=== PATIENT | female | born 1955 | race American Indian/Alaskan Native ===

== ENCOUNTER 2019-08-01 17:54 | Observation (INO) | payer OTHER ==
--- NOTE | 2019-08-01 18:11 | Event Note ---
ED Screening Note ED Screening Note: states she felt lightheaded and had an episode of syncope denies dizziness or CP no SOB hit against the concrete bilateral wrist and hand pain hit her face PMHx DM on metformin no allergies This initial assessment/diagnostic orders/clinical plan/treatment(s) is/are subject to change based on patients health status, clinical progression and re- assessment by fellow clinical providers in the ED. Further treatment and workup at subsequent clinical providers discretion. Patient/guardian urged not to elope from the ED as their condition may be serious if not clinically assessed and managed. Initial orders include: CT head, facial bones, c-spine, XR of the bilateral wrist/hands, EKG, labs, UA
[2019-08-01] MEDS ORDERED: TETANUS,DIPH,PERTUSS(ACELL) VACCINE 0.5 ML SYRINGE IM ONE (18:13)
[2019-08-01 18:45] LABS: Basophils % (Auto) 0.6 % (0.0-1.8); Eosinophils # (Auto) 0.2 K/mm3 (0.0-0.4); Eosinophils % (Auto) 2.6 % (0.0-4.3); Hematocrit 37.8 % (30.3-42.9); Hemoglobin 12.3 gm/dl (10.1-14.3); Lymphocytes # (Auto) 2.6 K/mm3 (1.2-5.4); Lymphocytes % (Auto) 38.4 % (13.4-35.0); Mean Corpuscular HGB Conc 33 % (30-34); Mean Corpuscular Volume 85 fl (79-97); Monocytes # (Auto) 0.5 K/mm3 (0.0-0.8); Monocytes % (Auto) 7.2 % (0.0-7.3); Platelet Count 273 K/mm3 (140-440); Red Blood Count 4.44 M/mm3 (3.65-5.03)
[2019-08-01 18:51] LABS: INR 0.95 (0.87-1.13)
[2019-08-01 18:52] LABS: Partial Thromboplastin Time 31.2 Sec. (24.2-36.6)
[2019-08-01 18:56] LABS: Alanine Aminotransferase 9 units/L (7-56); Albumin 4.3 g/dL (3.9-5); BUN/Creatinine Ratio 16; Blood Urea Nitrogen 14 mg/dL (7-17); Hemolysis Index 10
--- NOTE | 2019-08-01 19:31 | Cat Scan Report ---
CT head/brain wo con INDICATION: syncope, fell onto ground. TECHNIQUE: Routine CT head without contrast. All CT scans at this location are performed using CT dos e reduction for ALARA by means of automated exposure control. COMPARISON: None. FINDINGS: BRAIN / INTRACRANIAL CONTENTS: No acute hemorrhage, mass effect, midline shift, or hydrocephalus. No appreciable acute large territorial or lacunar infarct. No chronic infarct or focal atrophy. Normal b rain volume and ventricular/sulcal size for age. ORBITS: No significant abnormality of visualized orbits. SINUSES / MASTOIDS: No significant abnormality of visualized sinuses and mastoid air cells. ADDITIONAL FINDINGS: None. IMPRESSION: 1. No acute intracranial abnormality. Signer Name: Demetri Brown MD Signed: 08/01/2019 7:26 PM Workstation Name: [id number]
--- NOTE | 2019-08-01 19:36 | XRay Report ---
BILATERAL WRISTS 3 VIEWS BILATERAL HANDS 3 VIEWS INDICATION / CLINICAL INFORMATION: Bilateral hand and wrist pain after syncope with collapse. COMPARISON: None available. FINDINGS: BONES and JOINT(S): No acute fracture or subluxation. There is moderate left radiocarpal joint space loss and mild right radiocarpal joint space loss. An old avulsion fracture of the left ulnar styloid is noted. There is a probable old fracture of the left fifth metacarpal. SOFT TISSUES: No significant abnormality. ADDITIONAL FINDINGS: None. IMPRESSION: 1. No acute abnormality of the hands or wrists. 2. Additional findings as above. Signer Name: Cameron Díaz MD Signed: 08/01/2019 7:32 PM Workstation Name: [id number]
--- NOTE | 2019-08-01 19:46 | Cat Scan Report ---
CT CERVICAL SPINE WITHOUT CONTRAST INDICATION: syncope, fell onto ground. TECHNIQUE: Axial CT images of the spine were obtained. Sagittal and coronal reformatted images were produced. Al l CT scans at this location are performed using CT dose reduction for ALARA by means of automated exp osure control. COMPARISON: None available. FINDINGS: ACUTE FRACTURE(S) OR SUBLUXATION: None. SPINAL DEGENERATIVE CHANGES: There is mild degenerative disc disease from C4 through C7 with disc hei ght loss and endplate osteophyte formation. The endplate osteophytes appear to cause mild canal steno sis at the C6-7 level. There is also mild bilateral neural foraminal narrowing as well as secondary t o uncovertebral DJD. PARASPINAL SOFT TISSUES: No soft tissue swelling or other acute abnormalities. ADDITIONAL FINDINGS: No significant additional findings. IMPRESSION: 1. No acute fracture or subluxation in the spine in neutral position. 2. Degenerative findings in lower cervical spine as described. Signer Name: Demetri Brown MD Signed: 08/01/2019 7:41 PM Workstation Name: [id number]
--- NOTE | 2019-08-01 19:47 | Cat Scan Report ---
CT MAXILLOFACIAL WITHOUT CONTRAST INDICATION: syncope, fell onto ground. TECHNIQUE: Maxillofacial CT without contrast. All CT scans at this location are performed using CT dose reductio n for ALARA by means of automated exposure control. COMPARISON: None available. FINDINGS: FACIAL BONES: No fracture or other significant abnormality. PARANASAL SINUSES: No significant abnormality. ORBITS: No significant abnormality. VISUALIZED INTRACRANIAL STRUCTURES: No significant abnormality. ADDITIONAL FINDINGS: None. IMPRESSION: 1. No significant abnormality. Signer Name: Demetri Brown MD Signed: 08/01/2019 7:42 PM Workstation Name: [id number]
[2019-08-01 20:19] LABS: Bilirubin,Urine Negative (Negative); Blood,Urine Large (Negative); Color,Urine Straw (Yellow)
[2019-08-01 20:20] LABS: Protein,Urine <15 mg/dL mg/dL (Negative); Urobilinogen,Urine < 2.0 mg/dL (<2.0)
[2019-08-01 20:40] LABS: Bacteria,Urine 1+ /HPF (Negative)
--- NOTE | 2019-08-01 21:10 | Emergency Department Report ---
ED General Adult HPI - General Chief complaint: Syncope Stated complaint: PASSED OUT/CHECK FOR CONCUSSION Time Seen by Provider: 08/01/19 18:08 Source: patient, family Mode of arrival: Ambulatory Limitations: Other - History of Present Illness Initial comments: The patient presents to the emergency department for syncopal episode. Patient states she was waiting for the bus and the bus stop and became dizzy and passed out. Upon awakening the patient states will form and surrounding her who were concerned about the events and asked if she wanted ambulance and the patient politely declined. The patient proceeded to get on the bus and went home before coming to the hospital. Patient denies any chest pain or shortness of breath prior to after the event. Patient complains of neck and head pain as well as wrist and hand pain. -: Sudden Location: upper extremity Severity scale (0 -10): 5 Quality: aching Consistency: constant Improves with: none Worsens with: none Associated Symptoms: denies other symptoms Treatments Prior to Arrival: none - Related Data Allergies Allergy/AdvReac Type Severity Reaction Status Date / Time No Known Allergies Allergy Unverified 08/01/19 17:58 ED Review of Systems ROS: Stated complaint: PASSED OUT/CHECK FOR CONCUSSION Other details as noted in HPI Comment: All other systems reviewed and negative Constitutional: denies: chills, fever Eyes: denies: eye pain, eye discharge, vision change ENT: denies: ear pain, throat pain Respiratory: denies: cough, shortness of breath, wheezing Cardiovascular: denies: chest pain, palpitations Endocrine: no symptoms reported Gastrointestinal: denies: abdominal pain, nausea, diarrhea Genitourinary: denies: urgency, dysuria, discharge Musculoskeletal: denies: back pain, joint swelling, arthralgia Skin: denies: rash, lesions Neurological: denies: headache, weakness, paresthesias Psychiatric: denies: anxiety, depression Hematological/Lymphatic: denies: easy bleeding, easy bruising ED Past Medical Hx - Past Medical History Hx Diabetes: Yes Additional medical history: BROKE WRIST - Surgical History Additional Surgical History: EYE SURGERY - Social History Smoking Status: Never Smoker Substance Use Type: None ED Physical Exam - General Limitations: Other General appearance: alert, in no apparent distress - Head Head exam: Present: normocephalic, other (multiple abrasions to the face) - Eye Eye exam: Present: normal appearance, PERRL, EOMI - ENT ENT exam: Present: mucous membranes moist - Neck Neck exam: Present: normal inspection - Respiratory Respiratory exam: Present: normal lung sounds bilaterally. Absent: respiratory distress, wheezes, rales - Cardiovascular Cardiovascular Exam: Present: regular rate, normal rhythm. Absent: systolic murmur, diastolic murmur, rubs, gallop - GI/Abdominal GI/Abdominal exam: Present: soft, normal bowel sounds. Absent: distended, tenderness - Extremities Exam Extremities exam: Present: normal inspection - Back Exam Back exam: Present: normal inspection - Neurological Exam Neurological exam: Present: alert, oriented X3, CN II-XII intact. Absent: motor sensory deficit - Psychiatric Psychiatric exam: Present: normal affect, normal mood - Skin Skin exam: Present: warm, dry, intact, normal color. Absent: rash ED Course Vital Signs 08/01/19 08/01/19 08/01/19 18:03 18:38 18:39 Temperature 98.6 F Pulse Rate 78 Respiratory 18 Rate Blood Pressure 170/82 Blood Pressure [Left] O2 Sat by Pulse 97 100 99 Oximetry 08/01/19 08/01/19 08/01/19 18:40 18:46 19:40 Temperature 98.0 F Pulse Rate 73 70 Respiratory 12 18 14 Rate Blood Pressure 150/74 Blood Pressure 156/73 [Left] O2 Sat by Pulse 100 99 100 Oximetry 08/01/19 08/01/19 08/01/19 20:00 20:30 21:00 Temperature Pulse Rate 72 72 70 Respiratory 12 13 12 Rate Blood Pressure 156/79 162/77 136/76 Blood Pressure [Left] O2 Sat by Pulse 100 100 100 Oximetry ED Medical Decision Making - Lab Data Result diagrams: 08/01/19 18:24 08/01/19 18:24 Lab Results 08/01/19 08/01/19 08/01/19 Range/Units 18:24 18:24 18:24 WBC 6.9 (4.5-11.0) K/mm3 RBC 4.44 (3.65-5.03) M/mm3 Hgb 12.3 (10.1-14.3) gm/dl Hct 37.8 (30.3-42.9) % MCV 85 (79-97) fl MCH 28 (28-32) pg MCHC 33 (30-34) % RDW 14.0 (13.2-15.2) % Plt Count 273 (140-440) K/mm3 Lymph % (Auto) 38.4 H (13.4-35.0) % [place] % (Auto) 7.2 (0.0-7.3) % Eos % (Auto) 2.6 (0.0-4.3) % Baso % (Auto) 0.6 (0.0-1.8) % Lymph # 2.6 (1.2-5.4) K/mm3 [place] # 0.5 (0.0-0.8) K/mm3 Eos # 0.2 (0.0-0.4) K/mm3 Baso # 0.0 (0.0-0.1) K/mm3 Seg Neutrophils % 51.2 (40.0-70.0) % Seg Neutrophils # 3.5 (1.8-7.7) K/mm3 PT 12.6 (12.2-14.9) Sec. INR 0.95 (0.87-1.13) APTT 31.2 (24.2-36.6) Sec. Sodium 139 (137-145) mmol/L Potassium 4.0 (3.6-5.0) mmol/L Chloride 100.0 (98-107) mmol/L Carbon Dioxide 21 L (22-30) mmol/L Anion Gap 22 mmol/L BUN 14 (7-17) mg/dL Creatinine 0.9 (0.7-1.2) mg/dL Estimated GFR > 60 ml/min BUN/Creatinine Ratio 16 % Glucose 137 H (65-100) mg/dL Calcium 10.0 (8.4-10.2) mg/dL Phosphorus 3.60 (2.5-4.5) mg/dL Magnesium 1.70 (1.7-2.3) mg/dL Total Bilirubin 0.50 (0.1-1.2) mg/dL AST 18 (5-40) units/L ALT 9 (7-56) units/L Alkaline Phosphatase 60 (35-129) units/L Total Creatine Kinase 89 (30-135) units/L Total Protein 7.8 (6.3-8.2) g/dL Albumin 4.3 (3.9-5) g/dL Albumin/Globulin Ratio 1.2 % Urine Color (Yellow) Urine Turbidity (Clear) Urine pH (5.0-7.0) Ur Specific [place] (1.003-1.030) Urine Protein (Negative) mg/dL Urine Glucose (UA) (Negative) mg/dL Urine Ketones (Negative) mg/dL Urine Blood (Negative) Urine Nitrite (Negative) Urine Bilirubin (Negative) Urine Urobilinogen (<2.0) mg/dL Ur Leukocyte Esterase (Negative) Urine WBC (Auto) (0.0-6.0) /HPF Urine RBC (Auto) (0.0-6.0) /HPF Urine Bacteria (Auto) (Negative) /HPF 08/01/19 Range/Units 19:45 WBC (4.5-11.0) K/mm3 RBC (3.65-5.03) M/mm3 Hgb (10.1-14.3) gm/dl Hct (30.3-42.9) % MCV (79-97) fl MCH (28-32) pg MCHC (30-34) % RDW (13.2-15.2) % Plt Count (140-440) K/mm3 Lymph % (Auto) (13.4-35.0) % [place] % (Auto) (0.0-7.3) % Eos % (Auto) (0.0-4.3) % Baso % (Auto) (0.0-1.8) % Lymph # (1.2-5.4) K/mm3 [place] # (0.0-0.8) K/mm3 Eos # (0.0-0.4) K/mm3 Baso # (0.0-0.1) K/mm3 Seg Neutrophils % (40.0-70.0) % Seg Neutrophils # (1.8-7.7) K/mm3 PT (12.2-14.9) Sec. INR (0.87-1.13) APTT (24.2-36.6) Sec. Sodium (137-145) mmol/L Potassium (3.6-5.0) mmol/L Chloride (98-107) mmol/L Carbon Dioxide (22-30) mmol/L Anion Gap mmol/L BUN (7-17) mg/dL Creatinine (0.7-1.2) mg/dL Estimated GFR ml/min BUN/Creatinine Ratio % Glucose (65-100) mg/dL Calcium (8.4-10.2) mg/dL Phosphorus (2.5-4.5) mg/dL Magnesium (1.7-2.3) mg/dL Total Bilirubin (0.1-1.2) mg/dL AST (5-40) units/L ALT (7-56) units/L Alkaline Phosphatase (35-129) units/L Total Creatine Kinase (30-135) units/L Total Protein (6.3-8.2) g/dL Albumin (3.9-5) g/dL Albumin/Globulin Ratio % Urine Color Straw (Yellow) Urine Turbidity Clear (Clear) Urine pH 6.0 (5.0-7.0) Ur Specific [place] 1.010 (1.003-1.030) Urine Protein <15 mg/dl (Negative) mg/dL Urine Glucose (UA) Negative (Negative) mg/dL Urine Ketones Negative (Negative) mg/dL Urine Blood Large A (Negative) Urine Nitrite Negative (Negative) Urine Bilirubin Negative (Negative) Urine Urobilinogen < 2.0 (<2.0) mg/dL Ur Leukocyte Esterase Large (Negative) Urine WBC (Auto) 1.0 (0.0-6.0) /HPF Urine RBC (Auto) 1.0 (0.0-6.0) /HPF Urine Bacteria (Auto) 1+ (Negative) /HPF - EKG Data -: EKG Interpreted by Mo EKG shows normal: sinus rhythm Rate: normal - Radiology Data Radiology results: report reviewed - Medical Decision Making Results discussed with patient and her family Critical care attestation.: If time is entered above; I have spent that time in minutes in the direct care of this critically ill patient, excluding procedure time. ED Disposition Clinical Impression: Syncope and collapse Disposition: DC-09 OP ADMIT IP TO THIS HOSP Is pt being admited?: Yes Does the pt Need Aspirin: Yes Condition: Fair Instructions: Syncope (ED) Referrals: PRIMARY CARE, [Primary Care Provider] - 3-5 Days
[2019-08-01] MEDS ORDERED: DEXTROSE 50% IN WATER (25GM) 50 ML SYRINGE IV PRN (21:38)
[2019-08-01] MEDS ORDERED: ONDANSETRON 4 MG/2 ML INJ IV PRN (21:38)
[2019-08-01] MEDS ORDERED: MAGNESIUM HYDROXIDE (MOM) ORAL LIQD UDC PO PRN (21:38)
--- NOTE | 2019-08-01 21:50 | History and Physical Report ---
History of Present Illness Date of admission: 08/01/19 Chief complaint: Syncope History of present illness: 64 year old female with known history of diabetes mellitus had a syncopal episode today. [place] she had a syncopal episode. She fell face forward and injured the bridge of her nose. She had a mild headache which has since resolved. Patient also indicates that she had a similar episode a few years ago but did not seek any medical intervention. She has known history of diabetes mellitus and the blood sugar has been stable. Past History Past Medical History: other (Crohn's disease) Past Surgical History: cataract removal, Other (history of glaucoma) Family history: diabetes (diabetes mellitus runs in the family), hypertension, other Medications and Allergies Allergies Allergy/AdvReac Type Severity Reaction Status Date / Time No Known Allergies Allergy Verified 08/01/19 21:51 Review of Systems Neurological: syncope, headaches Exam - Constitutional Vitals: Temp Pulse Resp BP Pulse Ox 98.0 F 70 12 136/76 100 08/01/19 19:40 08/01/19 21:00 08/01/19 21:00 08/01/19 21:00 08/01/19 21:00 General appearance: Present: no acute distress, well-nourished - EENT Eyes: Present: PERRL, EOM intact ENT: hearing intact, clear oral mucosa, dentition normal - Neck Neck: Present: supple, normal ROM - Respiratory Respiratory effort: normal Respiratory: bilateral: CTA - Cardiovascular Rhythm: regular Heart Sounds: Present: S1 & S2 - Extremities Extremities: no ischemia, pulses symmetrical, No edema, Full ROM Peripheral Pulses: within normal limits - Abdominal General gastrointestinal: Present: soft, non-tender - Integumentary Integumentary: Present: clear, warm, dry, erythema (mild erythema and bruising on the forehead and bridge of the nose) - Musculoskeletal Musculoskeletal: strength equal bilaterally - Psychiatric Psychiatric: appropriate mood/affect, intact judgment & insight, cooperative - Neurologic Neurologic: CNII-XII intact, moves all extremities Results - Labs CBC & Chem 7: 08/01/19 18:24 08/01/19 18:24 Labs: Abnormal lab results 08/01/19 08/01/19 08/01/19 Range/Units 18:24 18:24 19:45 Lymph % (Auto) 38.4 H (13.4-35.0) % Carbon Dioxide 21 L (22-30) mmol/L Glucose 137 H (65-100) mg/dL Urine Blood Large A (Negative) Assessment and Plan - Patient Problems (1) Syncope and collapse Current Visit: Yes Status: Acute Plan to address problem: Etiology is unclear. Will observe in telemerty. We'll schedule patient for carotid Doppler and also echocardiogram. Will also monitor orthostatic vital signs. (2) Diabetes Current Visit: Yes Status: Acute Plan to address problem: We monitor blood glucose will resume routine home medications. (3) DVT prophylaxis Current Visit: Yes Status: Acute Plan to address problem: Will Place on subcutaneous heparin (4) Full code status Current Visit: Yes Status: Acute
[2019-08-01] MEDS ORDERED: HEPARIN 5,000 UNIT/1 ML VIAL ONE (22:25)
[2019-08-01] MEDS: HEPARIN 5,000 UNIT/1 ML VIAL SUB-Q SCH (22:26)
[2019-08-02] MEDS: ACETAMINOPHEN 325 MG TAB PO PRN ×2 (00:44→11:02)
[2019-08-02 05:56] LABS: Basophils % (Auto) 0.4 % (0.0-1.8); Eosinophils # (Auto) 0.2 K/mm3 (0.0-0.4); Eosinophils % (Auto) 3.8 % (0.0-4.3); Hematocrit 38.3 % (30.3-42.9); Hemoglobin 12.5 gm/dl (10.1-14.3); Lymphocytes # (Auto) 1.8 K/mm3 (1.2-5.4); Lymphocytes % (Auto) 45.6 % (13.4-35.0); Mean Corpuscular HGB Conc 33 % (30-34); Mean Corpuscular Volume 85 fl (79-97); Monocytes # (Auto) 0.3 K/mm3 (0.0-0.8); Monocytes % (Auto) 7.2 % (0.0-7.3); Platelet Count 265 K/mm3 (140-440); Red Blood Count 4.51 M/mm3 (3.65-5.03)
[2019-08-02 06:02] LABS: Partial Thromboplastin Time 33.1 Sec. (24.2-36.6)
[2019-08-02 06:06] LABS: BUN/Creatinine Ratio 13; Blood Urea Nitrogen 9 mg/dL (7-17); Hemolysis Index 1
[2019-08-02 06:32] LABS: Calcium 9.5 mg/dL (8.4-10.2)
[2019-08-02] MEDS: HEPARIN 5,000 UNIT/1 ML VIAL SUB-Q SCH ×3 (07:44→21:52)
--- NOTE | 2019-08-02 11:40 | Vascular Lab Report ---
Bilateral carotid Doppler. 08/02/2019. HISTORY: Syncope. FINDINGS: Duplex Doppler evaluation of the carotid system was performed with spectral waveform analys is. Antegrade vertebral flow is present bilaterally. Peak systolic velocity at the right internal carotid artery is 100 and centimeters per second. Systol ic velocity ratio is 1. Peak systolic velocity at the left internal carotid artery is 116 cm/s. Systolic velocity ratio is 1. 2. Grayscale imaging demonstrates no flow limiting plaque. IMPRESSION: Stenosis less than 50% bilaterally per NASCET criteria. Signer Name: Jose Valadez MD Signed: 08/02/2019 11:36 AM Workstation Name: [id number]
[2019-08-02] MEDS: oxyCODONE /ACETAMINOPHEN 5-325MG TAB PO PRN (13:04)
[2019-08-02] MEDS: INSULIN LISPRO 100 UNIT/ML SUB-Q SCH ×2 (18:07→21:52)
--- NOTE | 2019-08-02 18:35 | Progress Note ---
Assessment and Plan Assessment and plan: -- Syncope and collapse Current Visit: Yes Status: Acute Probably vasovagal,Autonomic disequilibrium Fall precautions.f/u carotid Doppler, echocardiogram. --Orthostatic changes: Current Visit: Yes Status: Acute Fall precautions --Severe dizziness; Current Visit: Yes Status: Acute Fall precautions, physical therapy. -- Diabetes Current Visit: Yes Status:Chronic. monitor blood glucose will resume routine home medications. -- DVT prophylaxis Current Visit: Yes Status: Acute Will Place on subcutaneous heparin -- Full code status Current Visit: Yes Status: Acute Ambulate as tolerated Possible DC this eveningor tomorrow if stable. Plan of care discussed with the patient, family member and her nurse History Interval history: Patient seen and examined medical records reviewed Patient complaints of severe dizziness Ambulated the bathroom once or twice Syncope workup is in progress Vital signs noted Hospitalist Physical - Constitutional Vitals: Temp Pulse Resp BP Pulse Ox 98.5 F 74 20 154/79 99 08/02/19 11:29 08/02/19 14:00 08/02/19 13:04 08/02/19 11:29 08/02/19 11:29 General appearance: Present: no acute distress, well-nourished, other (feels dizzy) - EENT Eyes: Present: PERRL, EOM intact - Neck Neck: Present: supple, normal ROM - Respiratory Respiratory effort: normal Respiratory: bilateral: diminished, negative: rales, rhonchi, wheezing - Cardiovascular Rhythm: regular Heart Sounds: Present: S1 & S2 - Extremities Extremities: no ischemia, No edema - Abdominal General gastrointestinal: soft, non-tender, non-distended, normal bowel sounds - Integumentary Integumentary: Present: clear, warm - Psychiatric Psychiatric: appropriate mood/affect, cooperative - Neurologic Neurologic: CNII-XII intact, moves all extremities Results - Labs CBC & Chem 7: 08/02/19 04:51 08/02/19 04:51 Labs: Laboratory Last Values WBC 4.0 K/mm3 (4.5-11.0) L 08/02/19 04:51 RBC 4.51 M/mm3 (3.65-5.03) 08/02/19 04:51 Hgb 12.5 gm/dl (10.1-14.3) 08/02/19 04:51 Hct 38.3 % (30.3-42.9) 08/02/19 04:51 MCV 85 fl (79-97) 08/02/19 04:51 MCH 28 pg (28-32) 08/02/19 04:51 MCHC 33 % (30-34) 08/02/19 04:51 RDW 14.0 % (13.2-15.2) 08/02/19 04:51 Plt Count 265 K/mm3 (140-440) 08/02/19 04:51 Lymph % (Auto) 45.6 % (13.4-35.0) H 08/02/19 04:51 [place] % (Auto) 7.2 % (0.0-7.3) 08/02/19 04:51 Eos % (Auto) 3.8 % (0.0-4.3) 08/02/19 04:51 Baso % (Auto) 0.4 % (0.0-1.8) 08/02/19 04:51 Lymph # 1.8 K/mm3 (1.2-5.4) 08/02/19 04:51 [place] # 0.3 K/mm3 (0.0-0.8) 08/02/19 04:51 Eos # 0.2 K/mm3 (0.0-0.4) 08/02/19 04:51 Baso # 0.0 K/mm3 (0.0-0.1) 08/02/19 04:51 Seg Neutrophils % 43.0 % (40.0-70.0) 08/02/19 04:51 Seg Neutrophils # 1.7 K/mm3 (1.8-7.7) L 08/02/19 04:51 PT 13.1 Sec. (12.2-14.9) 08/02/19 04:51 INR 1.00 (0.87-1.13) 08/02/19 04:51 APTT 33.1 Sec. (24.2-36.6) 08/02/19 04:51 Sodium 140 mmol/L (137-145) 08/02/19 04:51 Potassium 3.7 mmol/L (3.6-5.0) 08/02/19 04:51 Chloride 100.4 mmol/L (98-107) 08/02/19 04:51 Carbon Dioxide 27 mmol/L (22-30) 08/02/19 04:51 Anion Gap 16 mmol/L 08/02/19 04:51 BUN 9 mg/dL (7-17) 08/02/19 04:51 Creatinine 0.7 mg/dL (0.7-1.2) 08/02/19 04:51 Estimated GFR > 60 ml/min 08/02/19 04:51 BUN/Creatinine Ratio 13 % 08/02/19 04:51 Glucose 163 mg/dL (65-100) H 08/02/19 04:51 POC Glucose 166 (70-105) H 08/02/19 16:44 Calcium 9.5 mg/dL (8.4-10.2) 08/02/19 04:51 Phosphorus 3.60 mg/dL (2.5-4.5) 08/01/19 18:24 Magnesium 1.70 mg/dL (1.7-2.3) 08/01/19 18:24 Total Bilirubin 0.50 mg/dL (0.1-1.2) 08/01/19 18:24 AST 18 units/L (5-40) 08/01/19 18:24 ALT 9 units/L (7-56) 08/01/19 18:24 Alkaline Phosphatase 60 units/L (35-129) 08/01/19 18:24 Total Creatine Kinase 89 units/L (30-135) 08/01/19 18:24 Total Protein 7.8 g/dL (6.3-8.2) 08/01/19 18:24 Albumin 4.3 g/dL (3.9-5) 08/01/19 18:24 Albumin/Globulin Ratio 1.2 % 08/01/19 18:24 Urine Color Straw (Yellow) 08/01/19 19:45 Urine Turbidity Clear (Clear) 08/01/19 19:45 Urine pH 6.0 (5.0-7.0) 08/01/19 19:45 Ur Specific [place] 1.010 (1.003-1.030) 08/01/19 19:45 Urine Protein <15 mg/dl mg/dL (Negative) 08/01/19 19:45 Urine Glucose (UA) Negative mg/dL (Negative) 08/01/19 19:45 Urine Ketones Negative mg/dL (Negative) 08/01/19 19:45 Urine Blood Large (Negative) A 08/01/19 19:45 Urine Nitrite Negative (Negative) 08/01/19 19:45 Urine Bilirubin Negative (Negative) 08/01/19 19:45 Urine Urobilinogen < 2.0 mg/dL (<2.0) 08/01/19 19:45 Ur Leukocyte Esterase Large (Negative) 08/01/19 19:45 Urine WBC (Auto) 1.0 /HPF (0.0-6.0) 08/01/19 19:45 Urine RBC (Auto) 1.0 /HPF (0.0-6.0) 08/01/19 19:45 Urine Bacteria (Auto) 1+ /HPF (Negative) 08/01/19 19:45 Active Medications - Current Medications Current Medications: Generic Name Dose Route Start Last Admin Trade Name Freq PRN Reason Stop Dose Admin Acetaminophen 650 mg 08/01/19 21:38 08/02/19 11:02 Tylenol PO 650 mg Q4H PRN Administration Pain MILD(1-3)/Fever >100.5/CHAVARRIA Dextrose 50 ml 08/01/19 21:38 D50w (25gm) Syringe IV Q30MIN PRN Hypoglycemia Protocol Heparin Sodium (Porcine) 5,000 unit 08/01/19 22:00 08/02/19 15:09 Heparin SUB-Q 5,000 unit Q8HR ABIGAIL Administration Insulin Human Lispro 0 unit 08/02/19 16:30 08/02/19 18:07 Humalog SUB-Q 2 unit ACHS ABIGAIL Administration Protocol Magnesium Hydroxide 30 ml 08/01/19 21:38 Milk Of Magnesia PO Q4H PRN Constipation Ondansetron HCl 4 mg 08/01/19 21:38 08/02/19 00:46 Zofran IV 4 mg Q8H PRN Administration Nausea And Vomiting Oxycodone/Acetaminophen 1 tab 08/02/19 12:06 08/02/19 13:04 Percocet 5/325 PO 1 tab Q6H PRN Administration Pain, Moderate (4-6) Sodium Chloride 10 ml 08/01/19 22:00 08/02/19 11:03 Sodium Chloride Flush Syringe 10 Ml IV 10 ml BID ABIGAIL Administration Sodium Chloride 10 ml 08/01/19 21:38 Sodium Chloride Flush Syringe 10 Ml IV PRN PRN LINE FLUSH
[2019-08-03] MEDS: HEPARIN 5,000 UNIT/1 ML VIAL SUB-Q SCH (05:30)
[2019-08-03] MEDS: oxyCODONE /ACETAMINOPHEN 5-325MG TAB PO PRN (08:42)
[2019-08-03] MEDS: INSULIN LISPRO 100 UNIT/ML SUB-Q SCH (08:43)
[2019-08-03 10:25] VITALS: BP 138/72
--- NOTE | 2019-08-03 11:52 | Discharge Summary ---
Providers - Providers Date of Admission: 08/02/19 18:39 Date of discharge: 08/03/19 Attending physician: CICI HOLLINGSWORTH Primary care physician: CARTER LE Hospitalization Reason for admission: Syncope and collase Condition: Fair Pertinent studies: Carotid doppler: ECHO CT head CT neck CT face Hospital course: 64 year old female patient with known history of diabetes mellitus was admitted through ER with h/o syncopal episode. [place] had [place]opal episode. She fell face forward and injured the bridge of her nose. Placed on fall precautions,Had negative syncope work up however positive for ortho static changes. Symptoms slowly but gradually improved.Blood sugars in the normal range,didnot need coverage.Advised to hold diabetic meds and check with PMD in a few days and resume as needed. Today patient is comfortable,nonew complaints,vital signs reviewed. Stable at discharge. DischargeDiagnosis: -- Syncope and collapse Current Visit: Yes Status: Acute Probably vasovagal,Autonomic disequilibrium Fall precautions.f/u carotid Doppler, echocardiogram. --Orthostatic changes: Current Visit: Yes Status: Acute Fall precautions --Severe dizziness; Current Visit: Yes Status: Acute Fall precautions, physical therapy. -- Diabetes Current Visit: Yes Status:Chronic. monitor blood glucose will resume routine home medications. -- DVT prophylaxis Current Visit: Yes Status: Acute Will Place on subcutaneous heparin -- Full code status Current Visit: Yes Status: Acute Ambulate as tolerated. Fall precautions. Stable at discharge Disposition: [facility] TO HOME OR SELFCARE Time spent for discharge: 32 min Core Measure Documentation - Palliative Care Palliative Care/ Comfort Measures: Not Applicable - Core Measures Any of the following diagnoses?: none Exam - Constitutional Vitals: Temp Pulse Resp BP Pulse Ox 98.5 F 74 18 138/72 98 08/03/19 08:12 08/03/19 09:45 08/03/19 08:12 08/03/19 08:12 08/03/19 08:12 General appearance: Present: no acute distress, well-nourished - EENT Eyes: Present: PERRL, EOM intact - Neck Neck: Present: supple, normal ROM - Respiratory Respiratory effort: normal Respiratory: bilateral: diminished, negative: rales, rhonchi, wheezing - Cardiovascular Rhythm: regular Heart Sounds: Present: S1 & S2 - Extremities Extremities: no ischemia, No edema - Abdominal General gastrointestinal: Present: soft, non-tender, non-distended, normal bowel sounds - Integumentary Integumentary: Present: clear, warm - Musculoskeletal Musculoskeletal: strength equal bilaterally - Psychiatric Psychiatric: appropriate mood/affect, cooperative - Neurologic Neurologic: CNII-XII intact, moves all extremities Plan Activity: advance as tolerated, fall precautions Diet: diabetic Additional Instructions: 2 days work excuse on 08/04/19 and 08/05/19. Fall Precautions. Advised to see private neurologist if you feel dizzy or unsteady. Your blood sugars are in the normal range.Stop your diabetic meds for 1 week. and check with PMD Follow up with: PRIMARY CARE, [Referring] - 3-5 Days DEMETRIUS RAJPUT MD [Staff Physician] - 7 Days
== END 2019-08-03 12:18 | disposition home or self-care (01) ==
LOC: ED 17:54 → 4A 21:39 → INTOOBSV 08-02 18:39 → OBSVTOIN 08-02 18:39
PROVIDERS: ADMIT Internal Medicine Geriatric Medicine; ATTEND Internal Medicine
DX: R55 Syncope and collapse (principal); E11.9 Type 2 diabetes mellitus without complications; K50.90 Crohn's disease, unspecified, without complications; Z98.49 Cataract extraction status, unspecified eye; Z23 Encounter for immunization
CPT/HCPCS: 36415; 70450; 70486; 72125; 73110; 73130; 80048; 80053; 81001; 82550; 82962; 83735; 84100; 85025; 85610; 85730; 90471; 90715; 93005; 93010; 93306; 93880; 96372; 96374; 99284; G0378; J1644; J2405; J1815